=== PATIENT | female | born 1995 | race American Indian/Alaskan Native ===

== ENCOUNTER 2021-05-06 13:42 | Emergency (ER) | payer OTHER ==
[2021-05-06] MEDS ORDERED: IBUPROFEN 800 MG TAB PO ONE (14:06)
[2021-05-06] MEDS ORDERED: CYCLOBENZAPRINE 10 MG TAB PO ONE (14:06)
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
[2021-05-06 19:53] VITALS: BP 115/69
== END 2021-05-06 19:49 | disposition home or self-care (01) ==
LOC: EDBD → ED 13:42
DX: S89.81XA Other specified injuries of right lower leg, initial encounter (principal); S09.90XA Unspecified injury of head, initial encounter; S13.4XXA Sprain of ligaments of cervical spine, initial encounter; V89.2XXA Person injured in unspecified motor-vehicle accident, traffic, initial encounter; Y93.9 Activity, unspecified; Y92.89 Other specified places as the place of occurrence of the external cause; Y99.8 Other external cause status
CPT/HCPCS: 70450; 72125; 99284